=== PATIENT | male | born 1985 | race Caucasian/White ===

== ENCOUNTER 2020-11-26 13:26 | Emergency (ER) | payer OTHER, SELFPAY ==
[2020-11-26 13:37] VITALS: BP 113/65; BP 130/90; PULSE 80; PULSE 96; RESP 16; TEMP 37.1; O2SAT 95; O2SAT 98; BMI 27.2
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
[2020-11-26] MEDS: LORazepam 1 MG TABLET 2 MG PO (14:39)
[2020-11-26 16:23] LABS: HIV AB/AG Nonreactive (Nonreactive); HIV Num 1 0.07 S/CO (0.00-0.99)
[2020-11-26 16:45] VITALS: BP 133/73; PULSE 70; RESP 16; TEMP 36.6; O2SAT 99
[2020-11-26] MEDS: Diphth,Pertus(ACell),Tet Adult 0.5 ML SYRINGE IM (17:29)
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
[2020-11-27 08:26] LABS: HBc Num1 0.23 S/CO (0.00-0.79); HBsAGNum1 0.19 S/CO (0.00-0.99); Hepatitis B Core Antibody Nonreactive (Nonreactive); Hepatitis B Surface Antigen Negative (Negative)
[2020-11-27 08:29] LABS: HBS Num1 > 1000.00 mIU/mL (0-7.99); ~Hepatitis B Surface Antibody REACTIVE (Nonreactive)
[2020-11-27 08:45] LABS: ~HepC Num1 13.99 S/CO (0.00-0.79); ~Hepatitis C Antibody Reactive (Nonreactive)
== END 2020-11-26 18:00 | disposition home or self-care (01) ==
PROVIDERS: Emergency Provider Emergency Medicine
DX: S50.312A Abrasion of left elbow, initial encounter (principal); F13.20 Sedative, hypnotic or anxiolytic dependence, uncomplicated; X58.XXXA Exposure to other specified factors, initial encounter; Y93.9 Activity, unspecified; Y92.9 Unspecified place or not applicable; Y99.9 Unspecified external cause status
CPT/HCPCS: 36415; 86704; 86706; 86803; 87340; 87389; 90471; 90715; 99284